=== PATIENT | female | born 1970 | race African-American/Black ===

== ENCOUNTER 2017-06-01 11:47 | Emergency (ER) | payer OTHER ==
[~2017-06-01] VITALS: Ht 165.1 cm; Wt 134.7 kg
[2017-06-01 11:59] VITALS: BP 116/62
--- NOTE | 2017-06-01 12:26 | NUR ---
PT WAS SEEN ON SATURDAY AND SATURDAY BY DR. JONES AT [facility]. PHONE NUMBER TO FACILITY IS [phone], WHICH CLINIC IS CLOSED AT THIS TIME. PT HAD 2 SMEAR TESTS FOR MALARIA THAT WERE PROCESSED AT [place] AND [place], BOTH ARE BEING REPORTED NEGATIVE. ALL THE INFORMATION ABOVE IS PRESENTED TO RN BY PT'S FRIEND, WHO BROUGHT PT IN TO ER TODAY.
[2017-06-01 12:57] LABS: URINE BILIRUBIN NEGATIVE (Negative); URINE BLOOD 2+ (Negative); URINE CLARITY CLEAR; URINE GLUCOSE-RANDOM NEGATIVE (Negative); URINE KETONES NEGATIVE (Negative); URINE LEUKOCYTES-REFLEX NEGATIVE (Negative); URINE NITRITE-REFLEX NEGATIVE (Negative); URINE PROTEIN 2+ (Negative); URINE UROBILINOGEN 0.2 E.U./dl (0.2-1.0)
[2017-06-01 12:59] LABS: BE 0.7 mmol/L (-2 to +3); HCO3 22.6 mmol/L (22.0-26.0); PCO2 26.7 mmHg (35.0-45.0); PO2 78.4 mmHg (75.0-100.0); pH 7.545 (7.340-7.450)
[2017-06-01 12:59] LABS: URINE COLOR DARK YELLOW
[2017-06-01 13:10] LABS: HEMOGLOBIN 8.1 gm/dL (12.0-15.0); MCH 17.8 pg (26.0-34.0); MCV 56.1 fL (80.0-100.0); NUCLEATED RBCS 0 /100WBC; WBC 6.4 thou/uL (4.0-11.0)
--- NOTE | 2017-06-01 13:10 | NUR ---
PT MOVED TO ROOM 13 FOR ISOLATION PRECAUTIONS
[2017-06-01 13:12] LABS: HEMATOCRIT 25.7 % (37.0-47.0); MCHC 31.7 g/dL (28.0-37.0); RBC 4.58 mil/uL (4.20-5.00); RDW-CV 23.2 % (10.5-14.5)
[2017-06-01 13:15] LABS: CRYSTALS None Seen /LPF (None Seen); HYALINE CASTS 0-3 Few /LPF (None Seen); MUCUS 4-6 Moderate strn/LPF (None Seen); SQUAMOUS >10 Many /LPF (0-3)
[2017-06-01 13:16] LABS: BACTERIA-REFLEX 1-9 Few /HPF (None Seen); URINE RBC 0-2 Rare /HPF (0-2); URINE WBC-REFLEX 0-5 Rare /HPF (0-5)
[2017-06-01 13:19] LABS: CALCIUM 8.1 mg/dL (8.5-10.1); CREATININE 1.1 mg/dL (0.6-1.3); POTASSIUM 3.4 mmol/L (3.5-5.1)
[2017-06-01 13:24] LABS: ALBUMIN 2.4 g/dL (3.4-5.0); MAGNESIUM 1.7 mg/dL (1.8-2.4); TOTAL PROTEIN 7.6 g/dL (6.4-8.2)
[2017-06-01 13:44] LABS: ABSOLUTE EOSINOPHILS 0.1 thou/uL (0.0-0.7); ABSOLUTE MONOCYTES 0.1 thou/uL (0.0-1.2); ABSOLUTE NEUTROPHILS 5.2 thou/uL (1.6-8.1)
[2017-06-01 13:45] LABS: ANISOCYTOSIS 2+; CLUMPED PLTS OCCASIONAL; PLATELET ESTIMATE ADEQUATE
[2017-06-01 13:46] LABS: HYPOCHROMASIA 3+; MICROCYTES 3+; OVALOCYTES 1+; SCHISTOCYTES Occasional; TARGET CELLS 1+; TEARDROPS Occasional
[2017-06-01 13:47] LABS: LARGE PLATELETS FEW
[2017-06-01 13:48] LABS: MPV 8.8 fl. (7.2-11.1); PLATELET COUNT* 187 thou/uL (150-400)
[2017-06-01 14:11] LABS: INFLUENZA A ANTIGEN None Detected (None Detect); INFLUENZA B ANTIGEN None Detected (None Detect)
--- NOTE | 2017-06-01 17:00 | NUR ---
WAS NOTIFIED BY DR. PENG THAT PT NEEDS TO BE IN PRECAUTIONS FOR EBOLA DUE TO POSSIBLE RISK OF EXPOSURE WITH RECENT INTERNATIONAL TRAVEL. CHARGE NURSE ROXANNE CASTRO, PHYSICIAN DR. SILVA, AND PRASHANTH AYALA NOTIFIED AND EBOLA PRECAUTIONS IMPLEMENTED. [employer] NOTIFIED TO PLACE EBOLA ROOM ISOLATION. PT HAS BEEN IN [place] PRECAUTIONS SINCE 1309 AND EBOLA PRECAUTIONS IMPLEMENTED AT THIS TIME. WILL CONTINUE TO MONITOR.
--- NOTE | 2017-06-01 18:15 | NUR ---
SPOKE WITH DR. PENG AND RECONCILIATION SPECIALIST JADE SAINI. PER CDC RECOMMENDATIONS AND [facility] EPIDEMILOGIST "EBOLA RISK IS ZERO TO LOW RISK, AND EBOLA ISOLATION MAY BE DISCONTINUED, AND STANDARD PRECAUTIONS MAY BE IMPLEMENTED." [employer] CANCELLED FOR EBOLA ROOM ASSEMBLY.
[2017-06-01 19:15] LABS: ABSOLUTE BASOPHILS 0.1 thou/uL (0.0-0.2); ABSOLUTE LYMPHOCYTES 0.8 thou/uL (0.8-5.3); ABSOLUTE MONOCYTES 0.7 thou/uL (0.0-1.2); ABSOLUTE NEUTROPHILS 5.7 thou/uL (1.6-8.1); BASOPHILS 1.4 %; EOSINOPHILS 0.2 %; HEMATOCRIT 26.8 % (37.0-47.0); HEMOGLOBIN 8.3 gm/dL (12.0-15.0); LYMPHOCYTES 10.7 %; MCH 17.7 pg (26.0-34.0); MCHC 30.9 g/dL (28.0-37.0); MCV 57.4 fL (80.0-100.0); MONOCYTES 9.7 %; MPV 8.8 fl. (7.2-11.1); NUCLEATED RBCS 0 /100WBC; PLATELET COUNT* 167 thou/uL (150-400); RBC 4.67 mil/uL (4.20-5.00); RDW-CV 22.8 % (10.5-14.5); WBC 7.3 thou/uL (4.0-11.0)
--- NOTE | 2017-06-01 19:15 | NUR ---
CONFERENCE CALL WITH [facility] REGARDING PT. ALL PARTIES AGREED PT TO BE AT LOW TO ZERO RISK FOR EBOLA, AND [facility] WILL INITIATE TRANSFER DUE TO NEED FOR ADDITIONAL TESTINGS. DR. VICKERS ER LEATHER PRODUCTION MACHINE OPERATOR, DR. PENG, AUTOMATIC I THREADING MACHINE FEEDER JADE SAINI, POWER CHECKER INOCENCIA NOVOA, CHARGE NURSE CONSTANTINE LOWERY, AND MYSELF EVELIA BRISCOE PRESENT FOR CONFERENCE CALL. STANDARD PRECAUTIONS MAINTAINED.
[2017-06-01 19:31] LABS: CLUMPED PLTS OCCASIONAL; LARGE PLATELETS FEW; PLATELET ESTIMATE ADEQUATE
[2017-06-01 19:32] LABS: ANISOCYTOSIS 2+; HYPOCHROMASIA 3+; MICROCYTES 3+
[2017-06-01 19:33] LABS: OVALOCYTES Occasional; SCHISTOCYTES Occasional; TARGET CELLS 1+; TEARDROPS Occasional
--- NOTE | 2017-06-01 21:07 | NUR ---
REPORT GIVEN TO AMY AT [facility].
--- NOTE | 2017-06-01 22:04 | NUR ---
PER [facility] TRIAGE NURSE, PT TO BE TRANSFERRED WITH [facility] MASK.
[2017-06-01 22:43] VITALS: BP 101/56
--- NOTE | 2017-06-02 06:49 | NUR ---
[facility] NOTIFIED OF LAB RESULT OF PRELIMINARY POSITIVE MALARIA SMEAR.
[2017-06-03 15:07] LABS: HEPATITIS B SURFACE AG Confirm. indicated (Negative)
[2017-06-03 18:11] LABS: HBsAG CONFIRMATION Positive (())
== END 2017-06-01 22:04 | disposition short-term general hospital (02) ==
LOC: M.ERS 11:47 → M.TBA-ER 14:38
PROVIDERS: Family Medicine; Personal Emergency Response Attendant; Physician Assistant
DX: E87.1 Hypo-osmolality and hyponatremia (principal); D64.9 Anemia, unspecified; R50.9 Fever, unspecified